=== PATIENT | female | born 1980 | race African-American/Black ===

== ENCOUNTER 2021-02-12 15:36 | Emergency (ER) | payer OTHER ==
[~2021-02-12] VITALS: Ht 160 cm; Wt 76.7 kg
[~2021-02-12 15:36] MED LIST: ADVAIR 250-501 EACH IH; ALBUTEROL2.5 MG/31 IH; ALBUTEROL2.5 MG/31 INH; NOHOMEMEDICATIONS; PREDNISONE 20 M20 M1 PO; PREDNISONE 20 M20 MG PO; PROVENTIL HFA6.7 G1 INH; ZPAK PO
[2021-02-12] MEDS ORDERED: CEPHALEXIN500 MG PO (17:00)
[2021-02-12 17:06] VITALS: BP 122/78
== END 2021-02-12 17:07 | disposition home or self-care (01) ==
LOC: ER 15:36
DX: S81.811A Laceration without foreign body, right lower leg, initial encounter (principal); J45.909 Unspecified asthma, uncomplicated; W25.XXXA Contact with sharp glass, initial encounter; Y93.89 Activity, other specified; Y92.89 Other specified places as the place of occurrence of the external cause; Y99.8 Other external cause status

== ENCOUNTER 2021-05-01 17:20 | Emergency (ER) | payer OTHER ==
[~2021-05-01] VITALS: Ht 162.6 cm; Wt 78.0 kg
[~2021-05-01 17:20] MED LIST changes: +CEPHALEXIN500 MG PO
[2021-05-01 18:37] VITALS: BP 116/79
== END 2021-05-01 19:28 | disposition home or self-care (01) ==
LOC: ER 17:20
PROVIDERS: Emergency Medicine
DX: Z20.822 Contact with and (suspected) exposure to COVID-19 (principal); J45.909 Unspecified asthma, uncomplicated; F32.9 Major depressive disorder, single episode, unspecified; F41.9 Anxiety disorder, unspecified